=== PATIENT | female | born 1990 | race Caucasian/White ===

== ENCOUNTER 2016-06-24 15:36 | Emergency (ER) | payer OTHER ==
[~2016-06-24] VITALS: Ht 160 cm; Wt 109.0 kg
[~2016-06-24 15:36] MED LIST: CEPHALEXIN500 MG OR; CEPHALEXIN500 MG PO; CORTISPORIN OTI10 ML AS; DOXYCYC MONO100 M1 OR; DUONEB IN; FIORICET PO; MACROBID100 MG PO; MOTRIN800 MG PO; NO MEDS; ONDANSETRON4 MG PO; ROBITUSSIN AC OR; ZOFRAN ODT8 MG PO
[2016-06-24] MEDS ORDERED: MOTRIN800 MG PO (15:50)
[2016-06-24] MEDS ORDERED: AFRIN 12 HOUR0.05 % (15:50)
[2016-06-24] MEDS ORDERED: TESSALON PER100 MG PO (15:50)
[2016-06-24 16:27] LABS: INFLUENZA A NONE DETECTED (NONE DETECT); INFLUENZA B NONE DETECTED (NONE DETECT)
[2016-06-24 16:43] VITALS: BP 135/77
== END 2016-06-24 16:43 | disposition home or self-care (01) | DRG 153 ==
LOC: ED 15:36
PROVIDERS: Emergency Medicine
DX: J06.9 Acute upper respiratory infection, unspecified (principal); R52 Pain, unspecified; B34.9 Viral infection, unspecified; R50.9 Fever, unspecified; R05 Cough; R09.81 Nasal congestion; R09.89 Other specified symptoms and signs involving the circulatory and respiratory systems

== ENCOUNTER 2016-08-20 06:46 | Emergency (ER) | payer OTHER ==
[~2016-08-20] VITALS: Ht 160 cm; Wt 110.0 kg
[~2016-08-20 06:46] MED LIST changes: +AFRIN 12 HOUR0.05 %; +TESSALON PER100 MG PO
[2016-08-20] MEDS ORDERED: MEDDOSEPAK PO (08:10)
[2016-08-20 08:14] VITALS: BP 110/62
== END 2016-08-20 08:15 | disposition home or self-care (01) | DRG 203 ==
LOC: ED 06:46
DX: J45.901 Unspecified asthma with (acute) exacerbation (principal); R06.02 Shortness of breath

== ENCOUNTER 2018-06-30 19:06 | Emergency (ER) | payer SELFPAY ==
[~2018-06-30] VITALS: Ht 160 cm; Wt 111.6 kg
[~2018-06-30 19:06] MED LIST changes: +MEDDOSEPAK PO
[2018-06-30] MEDS ORDERED: CORTISPORIN OTI10 M2 AD (19:56)
[2018-06-30] MEDS ORDERED: AMOXICILLIN875 MG PO (19:56)
[2018-06-30 20:02] VITALS: BP 133/83
== END 2018-06-30 20:02 | disposition home or self-care (01) | DRG 156 ==
LOC: ED 19:06
DX: H60.92 Unspecified otitis externa, left ear (principal); H92.02 Otalgia, left ear; R50.9 Fever, unspecified; R59.0 Localized enlarged lymph nodes

== ENCOUNTER 2018-07-02 19:52 | Emergency (ER) | payer SELFPAY ==
[~2018-07-02] VITALS: Ht 160 cm; Wt 109.0 kg
[~2018-07-02 19:52] MED LIST changes: +AMOXICILLIN875 MG PO; +CORTISPORIN OTI10 M2 AD
[2018-07-02] MEDS ORDERED: CIPROFLOXACN500 MG PO (20:12)
[2018-07-02 20:15] VITALS: BP 144/98
[2018-07-02] MEDS ORDERED: CORTISPORIN OTI10 M2 AD (20:15)
== END 2018-07-02 20:15 | disposition home or self-care (01) | DRG 156 ==
LOC: ED 19:52
DX: H60.92 Unspecified otitis externa, left ear (principal)